=== PATIENT | male | born 1975 | race Caucasian/White ===

== ENCOUNTER → 2021-07-10 | Outpatient (CLI) | payer OTHER ==
[~2021-07-10] MED LIST: ELIMITE 5% CREA60 GM TOP; KEFLEX CAP 500500 MG PO; OMEPRAZOLE20 M1 PO; SILVADENE CREAM20 GM TOP; VISTARIL25 MG PO; ZOFRAN ODT 4 MG4 MG PO
== END ==
LOC: RAD 12:57
DX: R05.9 Cough, unspecified (principal); M54.2 Cervicalgia; M54.6 Pain in thoracic spine; M54.50 Low back pain, unspecified; M47.812 Spondylosis without myelopathy or radiculopathy, cervical region; M47.814 Spondylosis without myelopathy or radiculopathy, thoracic region
CPT/HCPCS: 71046; 72040; 72072; 72110